=== PATIENT | female | born 2005 | race Hispanic/Latino ===

== ENCOUNTER → 2024-04-04 | Outpatient (CLI) | LOC: M SOG 07:53 | PROVIDERS: ATTEND Physician Assistant | DX: Z53.9 Procedure and treatment not carried out, unspecified reason (principal) ==

== ENCOUNTER → 2024-11-07 | Outpatient (CLI) | payer OTHER | LOC: M LAB 15:33 | PROVIDERS: ATTEND Orthopaedic Surgery Hand Surgery | DX: E55.9 Vitamin D deficiency, unspecified (principal); R20.0 Anesthesia of skin ==